=== PATIENT | female | born 1985 | race Caucasian/White ===

== ENCOUNTER 2016-12-31 16:45 | Observation (INO) ==
[2016-12-31] MEDS ORDERED: SODIUM CHLORIDE 0.9% 1,000 ML IV STA (17:30)
[2016-12-31] MEDS ORDERED: MORPHINE 2 MG/1 ML SYRINGE IV STA ×2 (17:31→19:25)
[2016-12-31 17:46] LABS: Basophils # 0.1 10*3/uL (0.0-0.2); Basophils % 0.4 % (0.0-0.8); Eosinophils # 0.1 10*3/uL (0.0-0.87); Eosinophils % 0.8 % (0.00-10.9); Hematocrit 40.5 VOL% (35.7-47.0); Hemoglobin 13.5 GM/DL (12.0-16.0); Immature Granulocytes % 0.5 %; Immature Granulocytes Absolute 0.07 #; Lymphocytes # 2.6 10*3/uL (1.4-4.0); Mean Corpuscular HGB Conc 33.3 GM/DL (32-36); Mean Corpuscular Hemoglobin 29 PG (27-34); Mean Corpuscular Volume 86.7 FL (87-102); Monocytes # 0.7 10*3/uL (0.11-0.8); Monocytes % 5.2 % (1.7-12.7); Neutrophils # 10.7 10*3/uL (1.4-7.4); Neutrophils % 75.1 % (38.7-73.9); Platelet Count 434 T/CUMM (130-400); Red Blood Count 4.67 MC/CUMM (3.8-5.5); Red Cell Distribution Width 13.4 % (9.3-17.3); White Blood Count 14.3 T/CUMM (4-12)
[2016-12-31 17:51] LABS: Apearance,Urine CLOUDY (Clear); Bacteria,Urine Occasional /HPF (Few); Bilirubin,Urine Negative (Negative); Blood, Urine Negative (Negative); Glucose,Urine (UA) Negative (Negative); Ketones,Urine Negative (Negative); Mucus,Urine Occasional /LPF (Occasional); Nitrite,Urine Negative (Negative); Protein,Urine Negative; RBC,Urine 4 /HPF (0-4); Squamous Epithelial Cell,Urine Few /HPF (0-10); Urine Color Yellow (Yellow); Urine Specific Gravity 1.021 (1.001-1.035); Urine Urobilinogen < 2.0 EU/DL (0.2-1.0); WBC,Urine 5 /HPF (0-6)
[2016-12-31] MEDS ORDERED: MORPHINE 2 MG/1 ML SYRINGE ONE ×2 (18:07→19:27)
[2016-12-31 18:38] LABS: Alanine Aminotransferase 17 U/L (13-56); Albumin 3.3 G/DL (3.4-5.0); Alkaline Phosphatase 80 U/L (45-117); Aspartate Amino Transferase 16 U/L (0-37); Bilirubin,Total < 0.39 MG/DL (0.2-1.0); Blood Urea Nitrogen 11 MG/DL (7-18); Calcium 9.1 MG/DL (8.5-10.1); Glucose 95 MG/DL (74-106); Osmolality,Calculated 273.7 MOS/KG (273-304); Potassium 4.1 MMOL/L (3.5-5.1); Sodium 138 MMOL/L (136-145); Total Protein 7.6 G/DL (6.4-8.3)
[2016-12-31] MEDS ORDERED: ONDANSETRON 4 MG/2 ML VIAL IV PRN (20:58)
[2016-12-31] MEDS ORDERED: ACETAMINOPHEN 325 MG TABLET PO PRN (20:58)
[2016-12-31] MEDS ORDERED: IBUPROFEN 400 MG TABLET PO PRN (20:58)
[2016-12-31] MEDS: SODIUM CHLORIDE 0.45% 1,000 ML IV SCH (21:12)
[2016-12-31] MEDS: PROMETHAZINE 25 MG/1 ML VIAL IM PRN (21:12)
[2016-12-31] MEDS: HYDROmorphone 2 MG/1 ML VIAL IV PRN (21:17)
[2017-01-01] MEDS: HYDROmorphone 2 MG/1 ML VIAL IV PRN ×3 (01:40→10:01)
[2017-01-01] MEDS: PROMETHAZINE 25 MG/1 ML VIAL IM PRN (05:44)
[2017-01-01] MEDS ORDERED: PANTOPRAZOLE 40 MG TABLET PO SCH (09:00)
[2017-01-01] MEDS ORDERED: cefOXitin 2,000 MG in SYRINGE 1 EACH IV ONE (10:00)
[2017-01-01] MEDS ORDERED: LIDOCAINE 1%/EPI INJ 20 ML VIAL ONE (13:39)
[2017-01-01] MEDS ORDERED: TISSUE ADHESIVE 1 EACH APPLICATOR TOP ONE (13:39)
[2017-01-01] MEDS ORDERED: ONDANSETRON 4 MG/2 ML VIAL ONE ×2 (13:45→15:19)
[2017-01-01] MEDS ORDERED: KETOROLAC 30 MG/1 ML VIAL ONE ×2 (13:45→15:19)
[2017-01-01] MEDS ORDERED: DEXAMETHASONE 10 MG/1 ML VIAL ONE (13:45)
[2017-01-01] MEDS ORDERED: NEOSTIGMINE 10 MG/10 ML VIAL ONE ×2 (13:45→15:20)
[2017-01-01] MEDS ORDERED: PROPOFOL 200 MG/20 ML VIAL IV ONE ×2 (13:45→15:18)
[2017-01-01] MEDS ORDERED: GLYCOPYRROLATE 0.4 MG/2 ML VIAL ONE ×2 (13:45→15:19)
[2017-01-01] MEDS ORDERED: LIDOCAINE 2% 5 ML VIAL ONE (13:45)
[2017-01-01] MEDS ORDERED: ESMOLOL 100 MG/10 ML VIAL IV ONE ×2 (13:45→15:19)
[2017-01-01] MEDS ORDERED: PHENYLEPHRINE 1 MG/10 ML SYRINGE IV ONE (13:45)
[2017-01-01] MEDS ORDERED: ROCURONIUM 100 MG/10 ML VIAL IV ONE ×2 (13:45→15:20)
[2017-01-01] MEDS ORDERED: fentaNYL 100 MCG/2 ML VIAL ONE (15:18)
[2017-01-01] MEDS ORDERED: MIDAZOLAM 2 MG/2 ML VIAL ONE (15:19)
[2017-01-01] MEDS ORDERED: DEXAMETHASONE 20 MG/5 ML VIAL ONE (15:19)
[2017-01-01] MEDS ORDERED: ACETAMINOPHEN 1,000 MG/100 ML VIAL IV ONE (15:20)
[2017-01-01] MEDS ORDERED: SEVOFLURANE 1 UNIT/15 MINUTE INH ONE (15:21)
[2017-01-01] MEDS: SODIUM CHLORIDE 0.45% 1,000 ML IV SCH ×2 (16:26→16:28)
[2017-01-01 17:40] VITALS: BP 145/78
== END 2017-01-01 18:28 | disposition home or self-care (01) ==
LOC: N.EDINP 16:45 → N.ED 16:45 → N.EDINP 20:56 → N.5E 20:59
PROVIDERS: ADMIT Surgery; ATTEND Surgery
PROC: LAPCHOL (2017-01-01 13:45)